=== PATIENT | female | born 1995 | race Caucasian/White ===

== ENCOUNTER 2025-05-27 05:59 | Emergency (ER) | payer OTHER, SELFPAY ==
--- OUTSIDE RECORDS SUMMARY | 2025-04-17 04:45 | XMS_ITS ---
Author Organization [facility] Serv[facility] Address [address] [place] [address] Care Team Providers Care Child Support Officer Name Role Phone Columba Snatacruz Primary Care Provider [phone] Rossana Hayes [phone] REASON FOR VISIT Abilify injection Social History Sex Assigned At : Social History Observation Description Sex Assigned At Female Encounters Encounter Location Date Provider Diagnosis [address] [place] [address] 2024 Rossana Hayes Plan Of Treatment No Information Progress Notes * MANUEL TINOCODOB: 5 (30 yo F)Acc No.[id number]:04/17/2025 BH INJECTION Patient: Leonela WILNERSHANNA MANUEL Provider:?Rossana HayesDOB:1995???Age:30 Y ???Sex:FemaleDate:04/17/2025Phone:[phone]:[facility] [place], [place]-[id number]:Columba Santacruz Subjective: * Chief Complaints: * A bilify injection Billing Information: * Procedure Codes: * Electronic signature of WHITLEY Izaguirre FNP on 05/27/2025 at 07:11 AM EST Sign off status: Pending * Appointment Provider: Phyllis Hayes Date: 06/17/2024 Generated for Printing/Faxing/eTransmitting on:?05/27/2025 07:11 AM EST
--- OUTSIDE RECORDS SUMMARY | 2025-04-21 03:30 | XMS_ITS ---
Author Organization [facility] Address [address] [place] [address] Care Team Providers Care Application Support Consultant Name Role Phone Columba Santacruz Primary Care Provider Diana Lujan [phone] REASON FOR VISIT 3 month f/u bh Social History Sex Assigned At : Social History Observation Description Sex Assigned At Female Encounters Encounter Location Date Provider Diagnosis [address] [address] 04/21/2025 Diana Lujan Plan Of Treatment No Information Progress Notes * MANUEL TINOCODOB: 5 (30 yo F)Acc No.[id number]:04/21/2025 Behavioral Health Patient: MANUEL BRYANT :?Diana uLjanDOB:1995???Age:30 Y???Sex: FemaleDate:04/21/2025Phone:[phone]:[address] [facility] [place], [id number]:Columba Santacruz Subjective: * Chief Complaints: * 3 month f/u Billing Information: * Procedure Codes: * Electronic signature of SANTO Dumont on 05/27/2025 at 07:11 AM EST Sign off status: Pending * Provider: Keyana Lujan Date: 06/21/2024 Generated for Printing/Faxing/eTransmitting on:?05/27/2025 07:11 AM EST
--- OUTSIDE RECORDS SUMMARY | 2025-05-15 09:45 | XMS_ITS ---
Author Organization [facility] Address [address] [place] [address] Care Team Providers Care Stagecraft Teacher Name Role Phone Columba Santacruz Primary Care Provider Diana Lujan [phone] REASON FOR VISIT Pt is a 30 year old female here today for a 4 month f/u Social History Sex Assigned At : Social History Observation Description Sex Assigned At Female Encounters Encounter Location Date Provider Diagnosis [place] [address] [facility] [place] [address] 05/15/2025 Diana Lujan Plan Of Treatment No Information Progress Notes * MANUEL TINOCODOB: 5 (30 yo F)Acc No.[id number]:05/15/2025 Behavioral Health Patient: MANUEL BRYANT :?Diana LujanDOB:1995???Age:30 Y???Sex: FemaleDate:05/15/2025Phone:[phone]:[address] [facility] [place], [place]-[id number]:Columba Santacruz Subjective: * Chief Complaints: * P t is a 30 year old female here today for a 4 month f/u Billing Information: * Procedure Codes: * Electronic signature of SANTO Dumont on 05/27/2025 at 07:11 AM EST Sign off status: Pending * Provider: Keyana Lujan Date: 1 07/16/2024 Generated for Printing/Faxing/eTransmitting on:?05/27/2025 07:11 AM EST
--- OUTSIDE RECORDS SUMMARY | 2025-05-22 04:00 | XMS_ITS ---
Author Organization [facility] Serv[facility] es Address [address] [place] [address] Care Team Providers Care Insulation Cutter Name Role Phone Columba Santacruz Primary Care Provider Diana Lujan [phone] REASON FOR VISIT Pt is a 30 year old female here today for a 4 month f/u Social History Sex Assigned At : Social History Observation Description Sex Assigned At Female Encounters Encounter Location Date Provider Diagnosis [place] [address] [facility] [place] [address] 05/22/2025 Diana Lujan Plan Of Treatment No Information Progress Notes * MANUEL TINOCODOB: 5 (30 yo F)Acc No.[id number]:05/22/2025 Behavioral Health Patient: MANUEL BRYANT :?Diana LujanDOB:1995???Age:30 Y???Sex: FemaleDate:05/22/2025Phone:[phone]:[address] [facility] [place], [place]-[id number]:Columba Santacruz Subjective: * Chief Complaints: * P t is a 30 year old female here today for a 4 month f/u Billing Information: * Procedure Codes: * Electronic signature of SANTO Dumont on 05/27/2025 at 07:11 AM EST Sign off status: Pending * Provider: Keyana Lujan Date: 1 07/23/2024 Generated for Printing/Faxing/eTransmitting on:?05/27/2025 07:11 AM EST
[2025-05-27] VITALS (9 sets, daily range): BP systolic 106–117; BP diastolic 77–79; PULSE 103; TEMP 37.1; O2SAT 97–100; BMI 26.5
--- NOTE | 2025-05-27 06:18 | PC.NURSE ---
Patient to ED by EMS with c/o fever, n/v/d, muscle aches and headache. She reports having done home Covid test last night and this morning and both were negative. She states she was just diagnosed with cyclic vomiting syndrome, and that she has a medical marijuana card. She has both Reglan and Zofran at home that she uses routinely. She reports having diarrhea, and also a dx of Crohn's. She took Tylenol last at 5am- EMS reported temp of 101, temp on arrival was 98. She reports that her temp was up to 105 yesterday and Tylenol was not working. She is very chatty and joking during the entire triage. Patient is swabbed for Flu and Covid.
[2025-05-27 06:29] LABS: SARS-CoV-2 Ag POSITIVE (NEGATIVE)
[2025-05-27 06:43] LABS: Hematocrit 39.2 % (36.0-48.0); Hemoglobin 13.0 g/dL (12.0-16.0); Mean Corpuscular HGB Conc 33.2 g/dL (29.9-35.2); Mean Corpuscular Hemoglobin 29.4 pg (26.7-34.0); Mean Corpuscular Volume 88.7 fL (81.0-99.0); Platelet Count 153 10^3/uL (150-450); Red Blood Count 4.42 10^6/uL (4.20-5.40); White Blood Count 3.8 10^3/uL (4.0-11.0)
[2025-05-27 06:44] LABS: Glucose Urine UA NEGATIVE (NEGATIVE)
--- NOTE | 2025-05-27 06:52 | ED_ITS ---
Documented by User: Alan Marin MD 05/28/25 06:34 HPI - Nausea/Vomiting/Diarrhea General Chief complaint: Nausea/Vomiting/Diarrhea Stated complaint: FEVER Time Seen by Provider: 05/27/25 06:22 Source: patient Mode of arrival: ambulance History of Present Illness HPI Narrative: past history of cyclical vomiting syndrome, gastroparesis, Diarrhea, body aches and headaches . Recurrent vomiting for past 2-3 days. States she passed out at home. Also complaining of flank pain and fever. Has been taking Tylenol at home Related Data Home Medications ?Medication ?Instructions ?Recorded ?Confirmed gabapentin 400 mg tablet 400 mg PO BID 05/27/2505/27 metoclopramide HCl 10 mg tablet 10 mg PO BID 05/27/25 05/27/25 (Reglan) ondansetron HCl 4 mg tablet 4 mg PO Q8H 05/27/2505/27 tizanidine 4 mg capsule (Zanaflex) 4 mg PO BID PRN mus alexandre spasticity 05/27/25 05/27/25 Previous Rx's ?Medication ?Instructions ?Recorded promethazine 25 mg rectal 25 mg NM BID PRN nausea and 05/27/25 suppository vomiting #12 ea promethazine 25 mg tablet 25 mg PO TID PRN nausea and 05/27/25 vomiting #20 tabs Allergies Allergy/AdvReac Type Severity Reaction Status Date / Time latex Allergy Severe Hives Verified 05/27/25 13:55 aspirin Allergy Intermediate Vomiting Verified 05/27/25 13:55 lamotrigine (From Lamictal) AdvReac Intermediate Rash Verified 05/27/25 13:55 Review of Systems ROS Status of ROS 10 or more systems reviewed and unremark able except as noted in history and below [facility] Medical History (Updated 05/27/25 @ 14:01 by Catrina Wang MD) Pain management ?R52 - Pain, unspecified (ICD-10) delivery delivered ?O82 - Encounter for delivery without indication (ICD-10) Nonrheumatic aortic (valve) stenosis ?I35.0 - Nonrheumatic aortic (valve) stenosis (ICD-10) Cyclic vomiting syndrome ?R11.15 - Cyclical vomiting syndrome unrelated to migraine (ICD-10) Pulmonary embolism ?I26.99 - Other pulmonary embolism without acute cor pulmonale (ICD-10) Acute Crohn's disease ?K50.90 - Crohn's disease, unspecified, without complications (ICD-10) TIA (transient ischemic attack) ?G45.9 - Transient cerebral ischemic attack, unspecified (ICD-10) Social History Little interest or pleasure in doing things: not at all Feeling down, depressed, or hopeless: not at all Exam Constitutional Vital Signs, click to edit/add: Last Vital Signs Temp 98.8 F 05/27/25 06:02 Pulse 103 H 05/27/25 06:02 Resp 20 05/27/25 06:02 BP 117/77 05/27/25 08:00 Pulse Ox 100 05/27/25 08:30 O2 Del Method Room Air 05/27/25 06:02 Common normals: no apparent distress, average body habitus, oriented x3, no limitations, healthy appearing, alert and well nourished HENMT Common normals: normocephalic and head/scalp atraumatic Eye Common normals: EOMs intact bilaterally and conjunctivae normal Respiratory Common normals: normal respiratory effort, no retractions, no use of accessory muscles and clear to auscultation bilaterally Cardio Rate: tachycardic GI Common normals: Normal to inspection, nondistended, normoactive bowel sounds present and soft to palpation Other: gen nonspecific tenderness Extremity Common normals: normal to inspection and full ROM Neuro Common normals: oriented x3, CN's II-XII intact bilaterally and moves all extremities Psych Appearance: grossly normal Course Vital Signs Vital signs: Vital Signs Blood Pressure 106/79 05/27/25 05:59 Temperature 98.8 F 05/27/25 06:02 Pulse Rate 103 H 05/27/25 06:02 Respiratory Rate 20 05/27/25 06:02 Blood Pressure 117/77 05/27/25 08:00 Pulse Oximetry 100 05/27/25 08:30 Oxygen Delivery Method Room Air 05/27/25 06:02 MDM - Nausea/Vomiting/Diarrhea MDM Narrative Medical decision making narrative: presents with vomiting diarrhea and body aches. COVID 19+. labs and IV hydration ordered. Care transferred to Dr Wang at change of shift Lab Data Labs: Lab Results 05/27/25 05/27/25 Range/Units 06:10 06:30 WBC 3.8 L (4.0-11.0) 10^3/uL RBC 4.42 (4.20-5.40) 10^6/uL Hgb 13.0 (12.0-16.0) g/dL Hct 39.2 (36.0-48.0) % MCV 88.7 (81.0-99.0) fL MCH 29.4 (26.7-34.0) pg MCHC 33.2 (29.9-35.2) g/dL RDW 14.6 (11.0-15.0) % Plt Count 153 (150-450) 10^3/uL MPV 11.5 (9.5-13.5) fL Seg Neuts % (Manual) 76.0 H (43.0-75.0) Lymphocytes % (Manual) 16.0 L (20.5-60.0) % Monocytes % (Manual) 7.0 (1.7-12.0) % Eosinophils % (Manual) 1.0 (0.9-7.0) % Basophils % (Manual) 0.0 L (0.2-2.0) % Neutrophils # (Manual) 2.88 (1.4-6.5) 10^3/uL Lymphocytes # (Manual) 0.60 L (1.20-3.80) 10^3/uL Monocytes # (Manual) 0.26 L (0.30-0.80) 10^3/uL Eosinophils # (Manual) 0.03 (0.00-0.70) 10^3/uL Basophils # (Manual) 0.00 (0.00-0.10) 10^3/uL Sodium 140 (136-145) mmol/L Potassium 3.5 (3.5-5.1) mmol/L Chloride 106 (98-107) mmol/L Carbon Dioxide 20.7 L (21.0-32.0) mmol/L Anion Gap 16.8 BUN 14.0 (7.0-18.0) mg/dL Creatinine 1.78 H (0.55-1.02) mg/dL Est GFR ( Amer) 41 L (>=60 mL/min/1.73m^2) Est GFR (Non-Af Amer) 33 L (>=60 mL/min/1.73m^2) BUN/Creatinine Ratio 7.9 Glucose 83 (74-106) mg/dL Lactate 2.6 H* (0.4-2.0) mmol/L Calcium 7.5 L (8.5-10.1) mg/dL Total Bilirubin 0.2 (0.2-1.0) mg/dL AST 13 L (15-37) U/L ALT 9 L (14-59) U/L Alkaline Phosphatase 65 (46-116) U/L Total Protein 6.4 (6.4-8.2) g/dL Albumin 3.1 L (3.4-5.0) g/dL Globulin 3.3 g/dL Albumin/Globulin Ratio 0.9 Serum HCG, Qual Negative (NEGATIVE) Urine Color Yellow (YELLOW) Urine Clarity Clear (CLEAR) Urine pH 6.0 (5.0-9.0) Ur Specific [place] >=1.030 A (1.005-1.025) Urine Protein 100 A (NEG/TRACE) mg/dL Urine Glucose (UA) Negative (NEGATIVE) mg/dL Urine Ketones Negative (NEGATIVE) mg/dL Urine Occult Blood Large A (NEGATIVE) Urine Nitrite Positive A (NEGATIVE) Urine Bilirubin Negative (NEGATIVE) Urine Urobilinogen 0.2 (0.2-1.0) EU/dL Ur Leukocyte Esterase Negative (NEGATIVE) Urine RBC 2-5 A (0-2) #/HPF Urine WBC 2-5 A (NONE SEEN) #/HPF Ur Squamous Epith Cells Moderate A (NONE/RARE) #/LPF Urine Crystals None seen (None Seen) #/HPF Urine Bacteria Large A (NONE SEEN) #/HPF Urine Casts None seen (NONE SEEN) #/LPF Urine Mucus None seen (NONE SEEN) Urine Yeast Seen A (NONE SEEN) Ur Culture Indicated? Yes-[facility] Influenza Type A Ag Negative Influenza Type B Ag Negative SARS-CoV-2 Ag (CV2AG) Positive A (NEGATIVE) Discharge Plan Discharge Chief Complaint: Nausea/Vomiting/Diarrhea Clinical Impression: Gastroenteritis, COVID-19, RAGHAVENDRA (acute kidney injury) Patient Disposition: Home, Self-Care Time of Disposition Decision: 08:29 Condition: Good Prescriptions / Home Meds: New promethazine 25 mg tablet 25 mg PO TID PRN (Reason: nausea and vomiting) Qty: 20 0RF promethazine 25 mg suppository 25 mg NM BID PRN (Reason: nausea and vomiting) Qty: 12 0RF Rx Instructions: please use if not tolerating PO No Action gabapentin 400 mg tablet 400 mg PO BID tizanidine [Zanaflex] 4 mg capsule 4 mg PO BID PRN (Reason: muscle spasticity) ondansetron HCl 4 mg tablet 4 mg PO Q8H metoclopramide HCl [Reglan] 10 mg tablet 10 mg PO BID Print Language: Marshallese Instructions: Acute Kidney Injury (DC), Acute Nausea and Vomiting (DC), COVID- 19 (Coronavirus Disease 2019) (ED) Discharge Date/Time: 05/27/25 08:47 Documented by User: Catrina Wang MD 05/27/25 14:26 HPI - Nausea/Vomiting/Diarrhea General Chief complaint: Nausea/Vomiting/Diarrhea Stated complaint: FEVER Time Seen by Provider: 05/27/25 06:22 Related Data Home Medications ?Medication ?Instructions ?Recorded ?Confirmed gabapentin 400 mg tablet 400 mg PO BID 05/27/2505/27 metoclopramide HCl 10 mg tablet 10 mg PO BID 05/27/25 05/27/25 (Reglan) ondansetron HCl 4 mg tablet 4 mg PO Q8H 05/27/2505/27 tizanidine 4 mg capsule (Zanaflex) 4 mg PO BID PRN mus alexandre spasticity 05/27/25 05/27/25 Previous Rx's ?Medication ?Instructions ?Recorded promethazine 25 mg rectal 25 mg NM BID PRN nausea and 05/27/25 suppository vomiting #12 ea promethazine 25 mg tablet 25 mg PO TID PRN nausea and 05/27/25 vomiting #20 tabs Allergies Allergy/AdvReac Type Severity Reaction Status Date / Time latex Allergy Severe Hives Verified 05/27/25 13:55 aspirin Allergy Intermediate Vomiting Verified 05/27/25 13:55 lamotrigine (From Lamictal) AdvReac Intermediate Rash Verified 05/27/25 13:55 [facility] Medical History (Updated 05/27/25 @ 14:01 by Catrina Wang MD) Pain management ?R52 - Pain, unspecified (ICD-10) delivery delivered ?O82 - Encounter for delivery without indication (ICD-10) Nonrheumatic aortic (valve) stenosis ?I35.0 - Nonrheumatic aortic (valve) stenosis (ICD-10) Cyclic vomiting syndrome ?R11.15 - Cyclical vomiting syndrome unrelated to migraine (ICD-10) Pulmonary embolism ?I26.99 - Other pulmonary embolism without acute cor pulmonale (ICD-10) Acute Crohn's disease ?K50.90 - Crohn's disease, unspecified, without complications (ICD-10) TIA (transient ischemic attack) ?G45.9 - Transient cerebral ischemic attack, unspecified (ICD-10) Social History Little interest or pleasure in doing things: not at all Feeling down, depressed, or hopeless: not at all Exam Constitutional Vital Signs, click to edit/add: Last Vital Signs Temp 98.8 F 05/27/25 06:02 Pulse 103 H 05/27/25 06:02 Resp 20 05/27/25 06:02 BP 117/77 05/27/25 08:00 Pulse Ox 100 05/27/25 08:30 O2 Del Method Room Air 05/27/25 06:02 Course Vital Signs Vital signs: Vital Signs Blood Pressure 106/79 05/27/25 05:59 Temperature 98.8 F 05/27/25 06:02 Pulse Rate 103 H 05/27/25 06:02 Respiratory Rate 20 05/27/25 06:02 Blood Pressure 117/77 05/27/25 08:00 Pulse Oximetry 100 05/27/25 08:30 Oxygen Delivery Method Room Air 05/27/25 06:02 MDM - Nausea/Vomiting/Diarrhea MDM Narrative Medical decision making narrative: presents with vomiting diarrhea and body aches. COVID 19+. labs and IV hydration ordered. Care transferred to Dr Wang at change of shift Dr. Wang The patient care transferred to pa at the end of the shift CBC and chemistry showed that the patient have some acute kidney injury although she did mention that she have a baseline chronic kidney disease with her history of cyclic vomiting Patient was found to be COVID-positive she was provided with 2 L of IV fluid after the first liter the patient had her medication changed to Compazine IV a fter which she was feeling much better and she ended up ordering food from outside the hospital through [employer] and it was heavy food including gravy , once the food arrived and pt ate she and that she is feeling better ,the patient was eating with no difficulty and she requested to leave although the plan was to repeat the lactic acid and the blood workup but with the patient feeling much better and continued hydration right now there is no source of infection except for the COVID-19 the patient is to continue hydration she was discharged home with Phenergan as well as Phenergan suppository because of her history of cyclic vomiting The patient also referred to the primary care as outpatient for further evaluation of her kidney function Does have a urinalysis but there is some nitrite but there are no white blood cells or any significant RBCs--- with the patient history of diarrhea no need for any treatment for any UTI as the patient does not have any symptoms of any frequency or urinary symptoms at the moment and any antibiotic will exacerbate her diarrhea if not needed with her history of COVID-19 supportive care with the main plan The patient to follow-up with the primary care within 2 to 3 days and to come back to the ER in case of any worsening of the current symptoms or any new symptoms or concerns Clinical impression: COVID-19 Gastroenteritis Cyclic vomiting Acute kidney injury Lab Data Labs: Lab Results 05/27/25 05/27/25 Range/Units 06:10 06:30 WBC 3.8 L (4.0-11.0) 10^3/uL RBC 4.42 (4.20-5.40) 10^6/uL Hgb 13.0 (12.0-16.0) g/dL Hct 39.2 (36.0-48.0) % MCV 88.7 (81.0-99.0) fL MCH 29.4 (26.7-34.0) pg MCHC 33.2 (29.9-35.2) g/dL RDW 14.6 (11.0-15.0) % Plt Count 153 (150-450) 10^3/uL MPV 11.5 (9.5-13.5) fL Seg Neuts % (Manual) 76.0 H (43.0-75.0) Lymphocytes % (Manual) 16.0 L (20.5-60.0) % Monocytes % (Manual) 7.0 (1.7-12.0) % Eosinophils % (Manual) 1.0 (0.9-7.0) % Basophils % (Manual) 0.0 L (0.2-2.0) % Neutrophils # (Manual) 2.88 (1.4-6.5) 10^3/uL Lymphocytes # (Manual) 0.60 L (1.20-3.80) 10^3/uL Monocytes # (Manual) 0.26 L (0.30-0.80) 10^3/uL Eosinophils # (Manual) 0.03 (0.00-0.70) 10^3/uL Basophils # (Manual) 0.00 (0.00-0.10) 10^3/uL Sodium 140 (136-145) mmol/L Potassium 3.5 (3.5-5.1) mmol/L Chloride 106 (98-107) mmol/L Carbon Dioxide 20.7 L (21.0-32.0) mmol/L Anion Gap 16.8 BUN 14.0 (7.0-18.0) mg/dL Creatinine 1.78 H (0.55-1.02) mg/dL Est GFR ( Amer) 41 L (>=60 mL/min/1.73m^2) Est GFR (Non-Af Amer) 33 L (>=60 mL/min/1.73m^2) BUN/Creatinine Ratio 7.9 Glucose 83 (74-106) mg/dL Lactate 2.6 H* (0.4-2.0) mmol/L Calcium 7.5 L (8.5-10.1) mg/dL Total Bilirubin 0.2 (0.2-1.0) mg/dL AST 13 L (15-37) U/L ALT 9 L (14-59) U/L Alkaline Phosphatase 65 (46-116) U/L Total Protein 6.4 (6.4-8.2) g/dL Albumin 3.1 L (3.4-5.0) g/dL Globulin 3.3 g/dL Albumin/Globulin Ratio 0.9 Serum HCG, Qual Negative (NEGATIVE) Urine Color Yellow (YELLOW) Urine Clarity Clear (CLEAR) Urine pH 6.0 (5.0-9.0) Ur Specific [place] >=1.030 A (1.005-1.025) Urine Protein 100 A (NEG/TRACE) mg/dL Urine Glucose (UA) Negative (NEGATIVE) mg/dL Urine Ketones Negative (NEGATIVE) mg/dL Urine Occult Blood Large A (NEGATIVE) Urine Nitrite Positive A (NEGATIVE) Urine Bilirubin Negative (NEGATIVE) Urine Urobilinogen 0.2 (0.2-1.0) EU/dL Ur Leukocyte Esterase Negative (NEGATIVE) Urine RBC 2-5 A (0-2) #/HPF Urine WBC 2-5 A (NONE SEEN) #/HPF Ur Squamous Epith Cells Moderate A (NONE/RARE) #/LPF Urine Crystals None seen (None Seen) #/HPF Urine Bacteria Large A (NONE SEEN) #/HPF Urine Casts None seen (NONE SEEN) #/LPF Urine Mucus None seen (NONE SEEN) Urine Yeast Seen A (NONE SEEN) Ur Culture Indicated? Yes-[facility] Influenza Type A Ag Negative Influenza Type B Ag Negative SARS-CoV-2 Ag (CV2AG) Positive A (NEGATIVE) Discharge Plan Discharge Chief Complaint: Nausea/Vomiting/Diarrhea Clinical Impression: Gastroenteritis, COVID-19, RAGHAVENDRA (acute kidney injury) Patient Disposition: Home, Self-Care Time of Disposition Decision: 08:29 Condition: Good Prescriptions / Home Meds: New promethazine 25 mg tablet 25 mg PO TID PRN (Reason: nausea and vomiting) Qty: 20 0RF promethazine 25 mg suppository 25 mg NM BID PRN (Reason: nausea and vomiting) Qty: 12 0RF Rx Instructions: please use if not tolerating PO No Action gabapentin 400 mg tablet 400 mg PO BID tizanidine [Zanaflex] 4 mg capsule 4 mg PO BID PRN (Reason: muscle spasticity) ondansetron HCl 4 mg tablet 4 mg PO Q8H metoclopramide HCl [Reglan] 10 mg tablet 10 mg PO BID Print Language: Marshallese Instructions: Acute Kidney Injury (DC), Acute Nausea and Vomiting (DC), COVID- 19 (Coronavirus Disease 2019) (ED) Discharge Date/Time: 05/27/25 08:47
[2025-05-27 06:56] LABS: Cast Seen? NONE SEEN #/LPF (NONE SEEN); Crystals Seen? None Seen #/HPF (None Seen); Urine Culture Indicated YES-FRMC
[2025-05-27 07:05] LABS: Alanine Aminotransferase 9 U/L (14-59); Albumin Globulin Ratio 0.9; Albumin Level 3.1 g/dL (3.4-5.0); Alkaline Phosphatase 65 U/L (46-116); Anion Gap 16.8; Aspartate Amino Transferase 13 U/L (15-37); Blood Urea Nitrogen 14.0 mg/dL (7.0-18.0); Calcium 7.5 mg/dL (8.5-10.1); Carbon Dioxide 20.7 mmol/L (21.0-32.0); Chloride 106 mmol/L (98-107); Estimated GFR (African America 41 (>=60 mL/min/1.73m^2); Estimated GFR (Non-African Ame 33 (>=60 mL/min/1.73m^2); Globulin 3.3 g/dL; Glucose 83 mg/dL (74-106); Potassium 3.5 mmol/L (3.5-5.1); Sodium 140 mmol/L (136-145); Total Protein 6.4 g/dL (6.4-8.2)
--- OUTSIDE RECORDS SUMMARY | 2025-05-27 07:12 | XMS_ITS | Patient Health Record ---
Author Organization [employer] es Address [address] [place] [address] Care Team Providers Care Applications Scientist Name Role Phone Noam Columba Primary Care Provider Maureen Preciado Unavailable Dr. Sigifredo Bautista Unavailable [phone] Rossana Hayes Unavailable [phone] Mary Anne Huber Unavailable [phone] Lizzette Woo Unavailable [phone] Emili Jain Karla Unavailable SoJorge pulido Unavailable [phone] Sierra Pelayo Unavailable Penny Willams Unavailable [phone] Loki Grimes Unavailable [phone] Diana Lujan Unavailable [phone] Maureen Vieira Unavailable [phone] Allergies Allergen (clinical drug ingredient) Drug/Non Drug Allergy documented on EMR Reaction Allergy Type Onset Date Status lamotrigine LaMICtal rash Drug Allergy ActivealprazolamXanaxUnknownDrug AllergyActiveaspirinAspirinvomiting bloodDrug AllergyActive Results Component Value Reference Range Flag Notes Urine Culture Reviewed date:07/18/2024 05:34:59 PM Interpretation: Performing Lab:, [facility], [place] Notes/Report: POTENTIALLY THEY MAY BECOME RESISTANT TO ALL B-LACTAM DRUGS. SPECIES KNOWN TO POSSESS INDUCIBLE BETA-LACTAMASES. IB = INDUCIBLE BETA-LACTAMASE. APPEARS IN PLACE OF 'S' WITH TRISH = BETA-LACTAMASE POSITIVE TFG = THYMIDINE-DEPENDENT STRAIN ESBL = EXTENDED SPECTRUM BETA-LACTAMASE R* = RESISTANCE DUE TO EXTENDED SPECTRUM BETA-LACTAMASES BLANK = DATA NOT AVAILABLE, OR DRUG NOT ADVISABLE OR TESTED S = SUSCEPTIBLE I = INTERMEDIATE R = RESISTANT [place] Count >100,000 Aerobic MICEscherichia coliAmikacin<16SAmoxacillin/K Clavulanate<8/4SAmpicillin >16RAmpicillin/Sulbactam=16/8IAztreonam<4SCefazolin<2SCefepime<2SCeftazidime<1S Ceftazidime/Avibactam<4SCeftolozane/Tazobactam<2SCeftriaxone<1SCefuroxime<4S Ciprofloxacin<0.25SErtapenem<0.5SGentamicin<2SLevofloxacin<0.5SMeropenem<1S Meropenem/Vaborbactam<2SNitrofurantoin<32SPiperacillin/Tazobactam<8STetracycline <4STigecycline<2STobramycin<2STrimethoprim/Sulfamethoxazole>2/38RCBC w/ Auto Diff Reviewed date:03/12/2025 11:23:32 AM Interpretation: Performing Lab: Notes/Report: Original Ordering Provider: [place] [address] [address] [facility] LaboratoryWBC9.44.0-11.0 E9/LNRBC5.24.3-5.9 E12/LN HGB14.912.0-16.0 gm/fHSJqo33.834.0-46.0 %NRDW15.310.9-14.2 %HMCH28.827.0-34.0 pg NMCHC33.331.4-36.0 gm/fQASWO52.580.0-100.0 fLNMPV9.86.4-10.8 tKVWltyarkt154.0 150.0-500.0 E9/LNNeutro Auto95.036.0-75.0 %HLymph Auto4.414.0-50.0 %LMono Auto 0.34.0-14.0 %Virgie Auto0.00.0-8.0 %NBasophil Auto0.30.0-2.0 %NNeutro Absolute8.9 2.0-7.5 E9/LHLymph Absolute0.41.0-4.0 E9/LLMono Absolute0.00.2-1.0 E9/LLEos Absolute0.00.0-0.5 E9/LNBasophil Absolute0.00.0-0.2 E9/LNPerforming Labsee note [facility] Laboratory unless otherwise specified [address], [place] [address] IEU Reviewed date:03/12/2025 08:08:56 AM Interpretation: Performing Lab: Notes/Report: [facility] [address] [place] [address] Original Ordering Provider: RAJANI SANTACRUZGlucose Eaf07572-432 mg/sDBGYT50 5-21 mg/dLNCreatinine1.30.5-1.3 mg/dLNCalcium Lvl9.58.9-11.1 mg/dLNSodium Wer955 135-145 mmol/LNPotassium Lvl3.83.5-5.3 mmol/ZVXgwwxobu208191-510 mmol/DFPX71823- 31 mmol/LNAlk Yncw3725-26 Int._Unit/LNBili Total0.40.0-1.1 mg/dLNAlbumin Lvl4.7 3.3-5.0 gm/dLNTotal Protein7.66.0-7.8 gm/vLHMEB40-92 Int._Unit/KDZHZ668-36 Int._Unit/LNBUN/Creat Nfrfj2370-14 No EqgohGIOWD911-59 mEq/LNGlobulin2.91.4-4.0 gm/dLNA/G Ratio1.61.1-2.2NPerforming Labsee noteWestern Reserve Hospital Laboratory unless otherwise specified [address], [place] [address] AOA Screen 4th Generation wRfx Reviewed date:03/12/2025 11:23:36 AM Interpretation: Performing Lab: Notes/Report: Original Ordering Provider: [place] [address] [address] [facility] LaboratoryHIV Screen 4th Generation w/RfxNon ReactiveNon Reactive HIV-1/HIV-2 antibodies and HIV-1 p24 antigen were NOT detected. There is no laboratory evidence of HIV infection. HIV Negative Performed at: [facility] [id number] PhD Norberto Martinez Performing Labsee [facility] Laboratory unless otherwise specified [address] [place] [address] Basic Metabolic Panel Reviewed date:07/17/2024 07:35:57 AM Interpretation: Performing Lab: Notes/Report:Rugktsx1801-340 mg/dLN Random Glucose Reference Range is dependent on time and content of last meal. Glucose of more than 200 mg/dL in a nonstressed, ambulatory subject supports the diagnosis of Diabetes Mellitus. ADA recommended reference range Blood Urea Zhidhiau634-19 mg/fCPIekywp434652-120 mmol/LNPotassium4.13.5-5.1 mmol/KVTmatslws79150-750 mmol/LHCarbon Mojqfxo92.921.0-31.0 mmol/LLCalcium8.3 8.6-10.3 mg/dLLCreatinine1.160.60-1.20 mg/dLNEstimated GFR>60.0Anion Gap10.26.0- 15.0 meq/LNCreatinine Clr Calc Shnqokyv76.33Hepatic Panel Reviewed date:07/17/2024 07:36:09 AM Interpretation: Performing Lab:, [facility], [address], [place] Notes/Report:Total Protein6.96.4-8.9 g/dLNAlbumin Level4.23.5-5.7 g/dLNGlobulin 2.7Albumin/Globulin Ratio1.6Bilirubin,Total0.20.3-1.0 mg/dLLBilirubin,Direct0.10 0.03-0.18 mg/dLNBilirubin,Indirect0.1Aspartate Amino Doeggozywuq0293-63 U/LN Alanine Ycslmjvvpmzeebuu21-19 U/LLAlkaline Wcfsacozwyu3421-837 U/LNLipase Reviewed date:07/17/2024 07:35:35 AM Interpretation: Performing Lab: Notes/Report:Yfaaur53.011.0-82.0 U/LNComplete Blood Count Auto Diff Reviewed date:07/17/2024 07:35:27 AM Interpretation: Performing Lab:, [facility], [address] [place] Notes/Report:White Blood Count12.73.8-11.6 10*3/uLHUncorrected WBC12.73.8-11.6 10*3/uLHRed Blood Count4.343.60-5.00 10*6/tIKGgjxjydpcj27.011.8-15.4 g/dLN Nzifxkpwis56.934.0-46.4 %NMean Corpuscular Tjvfpa79.380-100 fLNMean Corpuscular Aqnaiingyc27.924.7-34.3 pgNMean Corpuscular HGB Conc34.232.0-35.0 g/dLNRed Cell Distribution Width14.911.9-15.3 %NPlatelet Goxvj814639-442 10*3/uLNMean Platelet Volume9.16.3-10.7 fLNNeutrophils % (Auto)79.0. %Lymphocytes % (Auto)15.9. % Monocytes % (Auto)4.1. %Eosinophils % (Auto)0.6. %Basophils % (Auto)0.4. %NRBC% 0.10-0.5 /100{WBC}NNeutrophils # (Auto)10.01.8-7.7 10*3/uLHLymphocytes # (Auto) 2.01.00-4.8 10*3/uLNMonocytes # (Auto)0.50.0-0.8 10*3/uLNEosinophils # (Auto)0.1 0.0-0.45 10*3/uLNBasophils # (Auto)0.10.0-0.2 10*3/uLNMonocyte Distribution Width16.360.00-20.00 %NDipstick and Microscopic Reviewed date:07/17/2024 07:36:31 AM Interpretation: Performing Lab:, [facility], [address] [place] Notes/Report: Name Collection Type:: VoidedColor,UrineYellowYellowAppearance,UrineCloudyClear AASpecificy [place],Urine1.0181.001-1.030NpH,Urine6.05.0-9.0NLeukocyte Esterase,Urine3+NegativeHNitrite,UrinePositiveNegativeHProtein,UrineTrace NegativeHGlucose,Urine (UA)NormalNormalKetones,UrineNegativeNegative Urobilinogen,UrineNormalNormalBilirubin,UrineNegativeNegativeOccult Blood,Urine 2+NegativeHRBC,Urine3-40-4 [HPF]WBC,Rlnug23-626-8 [HPF]HSquamous Epithelial Cell,Pbrwx94-757-2 [HPF]HBacteria,Urine3+None SeenHHyaline Casts,Urine0-80-8 [LPF]Mucus,UrineRareHCG,Urine Reviewed date:07/17/2024 07:33:07 AM Interpretation: Performing Lab: Notes/Report: Name Collection Type:: VoidedHCG Qualitative,UrineNegativeCT angio chest PE protocol Reviewed date:07/10/2024 10:40:29 AM Interpretation: Performing Lab: Notes/Report: [facility] [place] [address] CT Scan Report Signed Patient: Kelly Tinoco MR#: [id number] : 1995 Acct:[id number] Age/Sex: 29 / F ADM Date: 07/10/24 Loc: CT Room: Type: [facility] Attending Dr: Maureen Preciado TITLE ASSISTANT-C Copies to: Maureen Preciado Ordering Provider: Maureen Preciado Date of Service: 07/10/24 CT/CT angio chest PE protocol: Nonrheumatic aortic valve insufficiency;Nicotine dependence, CT ANGIOGRAM OF THE CHEST, PULMONARY EMBOLISM PROTOCOL: CLINICAL INFORMATION: Aortic valve regurgitation, chest pain, nontraumatic aortic valve insufficiency, history of asthma/pulmonary embolism TECHNIQUE: Following intravenous injection of contrast CT scans of the chest were obtained using pulmonary embolism protocol. Coronal and sagittal reconstructed images, as well as volume rendered CT pulmonary angiographic images were also submitted.The CT exam was performed using one or more of the following dose reduction techniques: Automated exposure control, adjustment of the MA and/or Kv according to patient size, or use of the iterative reconstruction technique. FINDINGS: Pulmonary Vasculature: Contrast bolus is adequate for evaluation of pulmonary embolism. Pulmonary trunk appears nondilated. No filling defects are identified to suggest pulmonary embolism. Mediastinum : Motion through the aortic root and ascending aorta. Ascending aorta 2.9 x 3.0 cm.. No pericardial effusion. No lymphadenopathy. The esophagus is grossly unremarkable. Lungs: There are few Intrapulmonary lymph node minor fissure right middle lobe up to 3 mm in size. No focal consolidation, pneumothorax or pleural effusion. Upper abdomen: No acute findings Soft tissue/bones: Soft tissues surrounding the chest wall demonstrate no acute findings. Osseous structures demonstrate minimal scattered degenerative change. CT/CT angio chest PE protocol IMPRESSION: No CT evidence of pulmonary embolism or acute cardiopulmonary process. Impression dictated by: Nick Solis M.D.07/10/2024 8:48 AM Dictation Location: [place] [address] Transcribed By: [facility] 07/10/24 0848 Dictated By: Nick Solis MD 07/10/24 0844 Signed By: <Electronically signed by Nick Solis MD in [place]> 07/10/24 0848Urine Drug Screen Reviewed date:06/13/2024 11:32:41 AM Interpretation: Performing Lab: Notes/Report: THCPosCOCnegAMPnegOPInegMAMPnegPCPnegBARnegBZOposMTOnegMDMAnegOXYnegBUPnegUrine Culture Reviewed date:06/16/2024 06:36:45 AM Interpretation: Performing Lab:, [facility], [address], [place] Notes/Report: POTENTIALLY THEY MAY BECOME RESISTANT TO ALL B-LACTAM DRUGS. SPECIES KNOWN TO POSSESS INDUCIBLE BETA-LACTAMASES. IB = INDUCIBLE BETA-LACTAMASE. APPEARS IN PLACE OF 'S' WITH TRISH = BETA-LACTAMASE POSITIVE TFG = THYMIDINE-DEPENDENT STRAIN ESBL = EXTENDED SPECTRUM BETA-LACTAMASE R* = RESISTANCE DUE TO EXTENDED SPECTRUM BETA-LACTAMASES BLANK = DATA NOT AVAILABLE, OR DRUG NOT ADVISABLE OR TESTED Urine S = SUSCEPTIBLE I = INTERMEDIATE R = RESISTANT Reason for Exam Abdominal cramping;Lower abdominal painColony Count>100,000 Aerobic MICEscherichia coliAmikacin<16SAmoxacillin/K Clavulanate<8/4SAmpicillin >16RAmpicillin/Sulbactam=16/8IAztreonam<7GWequptciy2WLrwjixse<2SCeftazidime<1S Ceftazidime/Avibactam<4SCeftolozane/Tazobactam<2SCeftriaxone<1SCefuroxime<4S Ciprofloxacin<0.25SErtapenem<0.5SGentamicin<2SLevofloxacin<0.5SMeropenem<1S Meropenem/Vaborbactam<2SNitrofurantoin<32SPiperacillin/Tazobactam<8STetracycline <4STigecycline<2STobramycin<2STrimethoprim/Sulfamethoxazole<0.5/9.5SUrinalysis automated Reviewed date:06/13/2024 11:34:31 AM Interpretation: Performing Lab: Notes/Report: Urine-ColoryellowAppearancecloudySpecific Gravity1.010pH6.0GlucosenegProteinneg Occult Ymmfs028IuysssuotnpkYbpxbgljdpgl,Semi-Qn0.2Nitrite, UrineposKetonesnegWBC Hvuknsko22Eunt Screen,Urine Reviewed date:07/16/2024 08:43:59 AM Interpretation: Performing Lab:, [facility], [place] Notes/Report:Amphetamine Screen,UrineNegativeNegativeBarbiturate Screen,Urine NegativeNegativeBenzodiazepines Screen,UrineNegativeNegativeCocaine Screen,Urine NegativeNegativeOpiate Screen,UrineNegativeNegativePhencyclidine Screen,Urine NegativeNegativeCannabinoid Screen,UrinePositiveNegativeH These are unconfirmed results and should not be used for legal purposes. Drug Cut-Off Concentration: AMPH 1000 ng/mL ISMAEL 200 ng/mL SYLVIE 200 ng/mL COCM 300 ng/mL OP 300 ng/mL PCP 25 ng/mL THC 20 ng/mL HCG,Urine Reviewed date:07/16/2024 07:29:13 AM Interpretation: Performing Lab:, [facility], [place] Notes/Report:HCG Qualitative,UrineNegativeHCG,Urine Reviewed date:07/09/2024 09:00:26 AM Interpretation: Performing Lab:, [facility], [address] [place] Notes/Report:HCG Qualitative,UrineNegativeeGFR Reviewed date:03/12/2025 08:08:49 AM Interpretation: Performing Lab: Notes/Report: [facility] [address] [place] [address] Original Ordering Provider: RAJANI Kennedy57>=59 mL/min/1.73 m2L Performing Labsee noteUNK - [facility] unless otherwise specified [address] [place] [address] Reason For Referral Reason SCHEDULED 07/09 Hx of Crohns untreated pt needs colonoscopy. Currently symptomatic. Diagnosis 1 Nonrheumatic aortic valve insufficiency (I35.1) Diagnosis 2 Nicotine dependence, unspecified, uncomplicated (F17.200) Diagnosis 3 History of pulmonary embolus (PE) (Z86.711) Diagnosis 4 History of Crohn's d isease (Z87.19) Diagnosis 5 Nausea (R11.0) Diagnosis 6 Abdominal cramping ( R10.9) Diagnosis 7 Blood in stool (K92. 1) Diagnosis 8 Lower abdominal pain (R10.30) Referral Organization [facility] Referring Provider First Name Maureen Referring Provider Last Name Ozzy Referring Provider Speciality Nurse Eli bates Referred Provider [facility] , . Referred Provider Specialty Gastroentero logy Referral Priority Routine Reason SCHEDULED 09/10/24 M id chest pain. 20 Pack year hx tobacco use. Per cardiology notes was supposed to have MARCELA 3 months after initial PE in mid jan. Aortic Valve disease, hx of PE 2023. Echo done 01/02 showed mod severe aortic valve regurg undetermined cause. Diagnosis 1 Nonrheumatic aortic valve insufficiency (I35.1) Diagnosis 2 Nicotine dependence, unspecified, uncomplicated (F17.200) Diagnosis 3 History of pulmonary embolus (PE) (Z86.711) Diagnosis 4 Midsternal chest rohit n (R07.89) Diagnosis 5 Moderate persistent asthma without complication (J45.40) Referral Organization [facility] Referring Provider First Name Maureen Referring Provider Last Name Ozzy Referring Provider Speciality Nurse Eli bates Referred Provider [facility] Referred Provider Specialty Cardiology Referral Priority Routine Reason PT DECLINED TO SCHED ULE History of Crohns and cyclic vomiting Diagnosis 1 Crohn's disease with complication, unspecified gastrointestinal tract location (K50.919) Diagnosis 2 Cyclic vomiting synd courtney (R11.15) Referral Organization [facility] Referring Provider First Name Columba Referring Provider Last Name [place] Referring Provider [facility] ctice Referred Provider Ervin Goodwin [facility], . Referred Provider Specialty Gastroentero logy Referral Priority Routine Reason PT DECLINED TO SCHED ULE WITH TIMMIS THEY SCHEDULED WITH INSTEAD Multiple swollen right cervical lymph nodes/difficulty swallowing Diagnosis 1 Generalized lymphade nopathy (R59.1) Referral Organization [facility] Referring Provider First Name Columba Referring Provider Last Name Santacruz Referring Provider [facility] ctice Referred Provider [facility]), . Referred Provider Specialty Otolaryngolo gy Referral Priority Routine Reason PT DECLINED TO SCHED ULE requesting a GI doctor not at [facility] Diagnosis 1 Crohn's disease with complication, unspecified gastrointestinal tract location (K50.919) Referral Organization [facility] Referring Provider First Name Columba Referring Provider Last Name [place] Referring Provider [facility] Referred Provider [facility] , . Referred Provider Specialty Gastroentero logy Referral Priority Routine Reason SCHEDULED 04/10 Ge neralized pain Diagnosis 1 Generalized pain (R5 2) Referral Organization [facility] Referring Provider First Name Columba Referring Provider Last Name [place] Referring Provider [facility] ctice Referred Provider ERVIN GOODWIN [facility] Referred Provider Specialty Pain Medicin e Referral Priority Routine Medications Medication SIG (Take, Route, Frequency, Duration) Notes Start Date End Date Status Abilify Maintena 400 MG Pref illed Syringe as directed Intramuscular once a month; Duration: 30 days PSYCH ActiveOndansetron HCl 4 MG Tablet1 tablet Orally twice dailyNot-Taking/PRN Ondansetron HCl 4 MG Tablet 1 tablet Orally Twice per day; Duration: 30 days As needed 5ActiveAlbuterol Sulfate HFA 108 (90 Base) MCG/ACT Aerosol Solution2 puff as needed Inhalation every 4-6 hrs; Duration: 30 whmcEHR9606/13/2024 Not-Taking/PRNPromethazine HCl 25 MG Tablet1 tablet as needed Orally every 12 hrs; Duration: 30 daysActiveFlonase Allergy Relief 50 MCG/ACT Suspension1 spray in each nostril Nasally Twice a dayActivetraMADol HCl 50 MG Tablet1 tablet as needed Orally twice a day; Duration: 5 days5ActiveZyrTEC 10 MG Tablet Chewable1 tablet Orally Once a dayActiveLidocaine 5 % Patch1 patch remove after 12 hours External Once a day; Duration: 30 daysActiveClopidogrel Bisulfate 75 MG TabletTAKE 1 TABLET BY MOUTH EVERY DAY for 15 days Oral; Duration: 15 Days Not-Taking/PRNMetaxalone 800 MG TabletTAKE 1/2 (ONE-HALF) TO 1 (ONE) TABLET THREE TIMES DAILY NEEDED for pain/spasms (do not take withother muscle relaxants) Oral; Duration: 14 DaysActivepredniSONE 50 MG Tablet1 tablet with food or milk Orally Once a dayNot-Taking/PRNtraZODone HCl 150 MG Tablet2 tablets at bedtime Oral daily; Duration: 30 daysPt called and has been taking two tablets. dosage increasedActiveAlbuterol Sulfate HFA 108 (90 Base) MCG/ACT Aerosol Solution1 puff as needed Inhalation every 4 hrs; Duration: 30 days 5ActiveMetoclopramide HCl 10 MG Tablet1 tablet before meals Orally Twice a day; Duration: 30 days5ActiveDicyclomine HCl 20 MG Tablet1 tablet Orally Three times a day; Duration: 30 days501/6Active Gabapentin 400 MG Capsule1 capsule Orally twice a day; Duration: 30 daysPSYCH Active Social History Tobacco Use: Social History Observation Description Date Details (start date - stop date) Current Smoker NA - NA Sex Assigned At : Social History Observation Description Sex Assigned At Female Social History GeneralSocial InfoQuestionAnswerNotesTransition of Care:ER/UC/hospital since last office visit?NoSpecialist seen since last office visit?NoSubstance abuse/mental health issues of patient/familyPatient -DeniesAbility to understand healthcare/treatmentPatient:FairSexual Hx:Had sex in the last 12 months (vaginal, oral, or anal)?Yes? withMen only? Use protection?No? Prevention Strategies discussed:CondomsHave you ever had an STD?NoSocial/Support Concerns: Patient:NoBehaviors affecting healthPoor/Risky Behaviors:Nutrition-, Oral Health-Communication Barrier:Language Barrier?:NoFood Insecurity ScreeningSocial InfoQuestionAnswerNotesFood Insecurity ScreeningWithin the last 12 months, have you been worried about your food running out before you received money to buy more?NoWithin the last 12 months, did the food you buy not last, and you didn't have money to buy more?NoWithin the last 12 months, have you had any difficulty affording to eat balanced meals including all food groups (fruits, vegetables, protein, and whole grains)?NoDrug/Alcohol:Social InfoQuestionAnswerNotesAUDIT-C (Standard)Did you have a drink containing alcohol in the past year?NoPoints0 InterpretationNegativeOPIOID Risk Tool (2018 Edition)Family Hx Alcohol?YesFamily Hx Illegal Drugs?NoFamily Hx Rx Drugs?YesPersonal Hx Alcohol?NoPersonal Hx Illegal Drugs?YesPersonal Hx Rx Drugs?NoAge between 16-45 years?YesHistory of Preadolescent Sexual Abuse?NoADD, OCD, Bipolar, Schizophrenia?YesDepression?Yes TOTAL [id number] Level for Opioid UsehighTobacco Use:Social InfoQuestionAnswer NotesTobacco Control (Standard)Tobacco use:Current smoker? How often do you smoke cigarettes?Every day? How many cigarettes a day do you smoke?5 or less? How soon after you wake up do you smoke your first cigarette?31-60 minutes? Are you interested in quitting?Ready to quitSection Notes: smokes marijuana smokes marijuana smokes marijuana Problems Problem Type SNOMED Code ICD Code Onset Dates Problem Status W/U Status Risk Notes Problem Tobacco user (276097230) Nicotin e dependence, unspecified, uncomplicated (F17.200) ActiveconfirmedProblemMixed bipolar affective disorder, moderate (253818469) Bipolar disorder, current episode mixed, moderate (F31.62)ActiveconfirmedProblem Spina bifida occulta (14333430)Spina bifida occulta (Q76.0)Activeconfirmed ProblemUncomplicated moderate persistent asthma (319343943)Moderate persistent asthma without complication (J45.40)ActiveconfirmedProblemMissed period (85550922)Missed menses (N92.6)ActiveconfirmedProblemMixed incontinence (942771106)Mixed stress and urge urinary incontinence (N39.46)Activeconfirmed ProblemBorderline personality disorder (52921301)Borderline personality disorder in adult (F60.3)ActiveconfirmedProblemHistory of pulmonary embolus (399361828) History of pulmonary embolus (PE) (Z86.711)ActiveconfirmedProblemUrinary incontinence (923266678)Other urinary incontinence (N39.498)Activeconfirmed ProblemAttention deficit hyperactivity disorder (601712941)Attention deficit hyperactivity disorder (ADHD), combined type (F90.2)ActiveconfirmedProblem Cyclical vomiting syndrome (65773435)Cyclic vomiting syndrome (R11.15)Active confirmedProblemCrohn's disease (61484389)Crohn's disease with complication, unspecified gastrointestinal tract location (K50.919)ActiveconfirmedProblem Aortic valve disorder (1119385)Nonrheumatic aortic valve insufficiency (I35.1) ActiveconfirmedProblemAnxiety (46460492)Anxiety (F41.9)InactiveconfirmedProblem Posttraumatic stress disorder (02118598)PTSD (post-traumatic stress disorder) (F43.10)InactiveconfirmedProblemBipolar affective disorder, currently manic, moderate (194411808)Bipolar affective disorder, currently manic, moderate (F31.12)InactiveconfirmedProblemMixed bipolar affective disorder, moderate (950645802)Bipolar mixed affective disorder, moderate (F31.62)Inactiveconfirmed Vital Signs Heart Rate 76 /min 04/28/2025 Rngwlfwvwfs27.2 degrees Jimnjhhkbg73/17/2025Respiratory Rate18 /min04/22/2025 Lpzpvodz49 %04/28/2025lood pressure usnklwocf15 mm Hg04/28/20252972Ziohnm84 in 04/28/2025lood pressure bfynlibg965 mm Hg04/28/20257857Cttefu714.8 lbs106/28/2024MI 28.49 kg/m204/28/2025 Encounters Encounter Location Date Provider Diagnosis [facility] [address] [place] [address] 05/31/2024 Jaime Esthela [facility] [place] [address]/03/2025 [facility] [address] [place] [address]/01/2025[facility] [address] [place] [address]/[facility] [address] [place] [address]/[facility] [address] [place] [address]/[facility] [place] [address] 07/05/2024[facility] [place] [address]/[facility] [address] [place] [address]/[facility] [address] [place] [address]/[facility] [place] [address] [facility] [place] [address]/[facility] [address] [place] [address]/09/[address] [facility] [place] [address]/04/2025[facility] [address] [place] [address]/10/2024[facility] [place] [address]/04/2025[facility] [address] [place] [address]/ Dianajulia LujanBipolar disorder, current episode mixed, moderate F31.62 and Attention deficit hyperactivity disorder (ADHD), combined type F90.2Fmethodist [facility] [address] [place] [address]/Diana LujanPTSD (post-traumatic stress disorder) F43.10 and Bipolar disorder, current episode mixed, moderate F31.62[facility] [address] [place] [address]/Jejessica Resendiz R11.0[facility] Ayunayvo[address] [place] [address]/Patriciojulia Lujan [facility] [place] [address]/ [facility]okiFranc[facility] [place] [address]/02/2025[facility] [place] [address]/03/2025Nicole [facility] [place] [address]/04/2025Nicole [facility] [address] [place] [address]/04/2025Nicole FlemingCrohn's disease with complication, unspecified gastrointestinal tract location K50.919 [facility] [address] [place] [address]/05/[address] [facility] [place] [address] 03/12/2025Nicole [facility] [place] [address]/07/2024Nicole [facility] [place] [address]/08/2024Nicole MissoulaCervical lymphadenopathy R59.0 [facility] [address] [place] [address]/11/2024 [facility] [place] [address] 03/24/2025[address] [facility] [place] [place] [address]/Nicole FlemingGeneralized pain 2[facility] [facility] [place] [address]/Leslie NeubergerBipolar disorder, current episode mixed, moderate F31.62[facility] [facility] [place] [address]/[facility] [place] [address]/03/2025Lese [facility] [place] [address]/10/2024Lese NeubergerBipolar disorder, current episode mixed, moderate F31.[address] [place] [address] [address] [place] [address]/hristy CoxDiana [place] [id number] [facility] HOSPITALDIMIDDLETOWN [place] [address]/Nicole FlemingMissed menses N92.6FGaylord Hospital [address] [place] [address]/Nicole FlemingGeneralized pain [address] [place] [address]/07/2024Jennifer RichardsonNicotine dependence, unspecified, uncomplicated F17.200 ; Nonrheumatic aortic valve insufficiency I35.1 ; History of pulmonary embolus (PE) Z86.711 ; History of Crohn's disease Z87.19 ; Nausea R11.0 ; Abdominal cramping R10.9 ; Blood in stool K92.1 ; Midsternal chest pain R07.89 ; Lower abdominal pain R10.30 ; Moderate persistent asthma without complication J45.40 and Acute cystitis with hematuria N30.01[facility] [address] [address]Jennifer RichardsonNicotine dependence, unspecified, uncomplicated F17.200 ; Nonrheumatic aortic valve insufficiency I35.1 ; Sinus congestion R09.81 ; Skin burn T30.0 and Wheezing R06.2[facility] [address] [address]/03/2025Nicole [facility] wellness visit Z00.00 ; Crohn's disease with complication, unspecified gastrointestinal tract location K50.919 ; Cyclic vomiting syndrome R11.15 ; Borderline personality disorder in adult F60.3 and Respiratory infection J98.8[facility] [address] [address]/09/2024Stephanie [facility] Z09 ; RAGHAVENDRA (acute kidney injury) N17.9 ; Nicotine dependence, unspecified, uncomplicated F17.200 ; Spina bifida occulta Q76.0 ; Mixed stress and urge urinary incontinence N39.46 ; Other urinary incontinence N39.498 and Right sided weakness R53.1[facility] [address] [address]/ Columba FlemingCrohn's disease with complication, unspecified gastrointestinal tract location K50.919 and Generalized lymphadenopathy R59.1[facility] [address] [place] [address]/12/2024[facility] [address] [place] [address]/lexa zzzKevPTSD (post- traumatic stress disorder) F43.10 and Borderline personality disorder in adult F60.3[facility] [address] [place] [address]/12/2024Rossana Hayes Bipolar disorder, current episode mixed, moderate F31.62[facility] E[address]kp[address] [place] [address]/08/2024Rossana HayesBipolar disorder, current episode mixed, moderate F31.62[facility] [address] [place] [address] 09/09/2024Melissa HolladaPTSD (post-traumatic stress disorder) F43.10 and Bipolar mixed affective disorder, moderate F31.62S Phzmeen[address] [place] [address]/01/2025Melissa HolladaBorderline personality disorder in adult F60.3F [address] [place] [address]/06/2024 Loki HolladaBorderline personality disorder in adult F60.3[facility] Eq[address] [place] [address]/11/2024Melissa HolladaBorderline personality disorder in adult F60.3[facility] [address] [facility] [address]/08/2024Melissa HolladaBorderline personality disorder in adult F60.3FRivers[facility] X[address]zdlv[address] [place] [address], [place] [address] 07/10/2024Jasmina SaricCracked tooth K03.81 ; Complete loss of teeth, unspecified cause, class I K08.101 ; Encounter for dental examination and cleaning with abnormal findings Z01.21 and Disturbances in tooth eruption K00.6 [facility] [facility] [place] [address]/5Christy Huber Bipolar mixed affective disorder, moderate F31.62 ; Anxiety F41.9 and PTSD (post-traumatic stress disorder) F43.10S Eqprktp[address] [place] [address]/Leslie NeubergerBipolar mixed affective disorder, moderate F31.62 ; PTSD (post-traumatic stress disorder) F43.10 and Anxiety F41.9[facility] [facility] [place] [address]/4Christy CoxBipolar affective disorder, currently manic, moderate F31.12[facility] [facility] [place] [address]/5Christy CoxBipolar mixed affective disorder, moderate F31.62 and Anxiety F41.9[facility] [place] [address]/Lesjulia LujanPTSD (post-traumatic stress disorder) F43.10 ; Bipolar disorder, current episode mixed, moderate F31.62 and Attention deficit hyperactivity disorder (ADHD), combined type F90.[address] [place], [place] [id number] [facility] [place] [address]/Leslie NeubergerBipolar disorder, current episode mixed, moderate F31.62 and Attention deficit hyperactivity disorder (ADHD), combined type F90.[address] [place], [place] [address]149 [address] [facility] [place] [address]/Leslie NeubergerBipolar disorder, current episode mixed, moderate F31.62 and Attention deficit hyperactivity disorder (ADHD), combined type F90.[address] [place], [place] [address]65 [place] [address]/04/2025Nicole FlemingCrohn's disease with complication, unspecified gastrointestinal tract location K50.919 and Cyclic vomiting syndrome R11.15[facility] [address]wi[address] [place] [address]/04/2025Mary PetersBipolar disorder, current episode mixed, moderate F31.62[facility] [address]ks[address] [place] [address] 04/22/2025Mary PetersBipolar disorder, current episode mixed, moderate F31.62 Assessments Encounter Date Diagnosis (ICD Code) Assessment Notes Treatment Notes Treatment Clinical Notes Section Notes 02/20/2025 Crohn's disease with complication, unspecified gastrointestinal tract location (ICD-10 - K50.919) Maribell was seen yesterday in office to establish care. At this time refills were sent. She staes that [facility] did not refill them correctly and is requesting new prescriptions. She deniesany other complaints or concerns. Advised to follow up as needed.03/14/2025ervical lymphadenopathy (ICD-10 - R59.0)03/24/2025Generalized pain (ICD-10 - R52)04/28/2025Missed menses (ICD-10 - N92.6)Patient complains of missed menstrual cycle this month. States LMP week of March. Urine negative in office. Lab Hcg sent to Jennifer Garciased that the office will call with results.5Bipolar mixed affective disorder, moderate (ICD-10 - F31.62) Recommended treatment for Bipolar disorder includes FDA approved and OFF label medications: second generation antipsychotics and mood stabilizers. Discussed life threatening side effect of Lamotrigine. Pt is to monitor for new skin rashes or sensation of a sunburn or itchiness or redness, mouth sores or sores in mucus membranes, and call provider immediately and or go to ER, and stop the medication. Second generation antipsychotic medications can cause headache, drowsiness, agitation, dizziness, nausea, or extrapyramidal symptoms such as tremors, muscle spasms, slowness of movement or jerkingof muscles. The patient verbalizes understanding with all questions answered thoroughly and is in agreement with treatment plan. Continue current treatment. . Call for problems . GOALS: . Maintain medication regimen _Improve mood stability _Improve anxiety control _Improve social and interpersonal functioning Patient/Guardian will call sooner if symptoms worsen. Patient understands to go to ER if needed if symptoms become severe. Crisis Intervention plan was discussed and agreed upon. Patient/Guardian will call 911 in case of emergency. Emergency contact information was provided to the patient/guardian. follow up 1 month. Pharmacological management: . Alternative medication plans were discussed with the patient/guardian. All relevant side effects and potential adverse effects were discussed with the patient/guardian. Standard cautions and potential benefits were discussed. Patient/Guardian consented to the start/continuation of the treatment. 5Bipolar mixed affective disorder, moderate (ICD-10 - F31.62) Recommended treatment for Bipolar disorder includes FDA approved and OFF label medications: second generation antipsychotics and mood stabilizers. Discussed life threatening side effect of Lamotrigine. Pt is to monitor for new skin rashes or sensation of a sunburn or itchiness or redness, mouth sores or sores in mucus membranes, and call provider immediately and or go to ER, and stop the medication. Second generation antipsychotic medications can cause headache, drowsiness, agitation, dizziness, nausea, or extrapyramidal symptoms such as tremors, muscle spasms, slowness of movement or jerkingof muscles. The patient verbalizes understanding with all questions answered thoroughly and is in agreement with treatment plan. Continue current treatment. Call for problems . GOALS: . Maintain medication regimen _Improve mood stability _Improve anxiety control _Improve social and interpersonal functioning Patient/Guardian will call sooner if symptoms worsen. Patient understands to go to ER if needed if symptoms become severe. Crisis Intervention plan was discussed and agreed upon. Patient/Guardian will call 911 in case of emergency. Emergency contact information was provided to the patient/guardian. follow up 1 month. Pharmacological management: . Alternative medication plans were discussed with the patient/guardian. All relevant side effects and potential adverse effects were discussed with the patient/guardian. Standard cautions and potential benefits were discussed. Patient/Guardian consented to the start/continuation of the treatment. 06/07/2024ipolar affective disorder, currently manic, moderate (ICD-10 - F31.12) Recommended treatment for Bipolar disorder includes FDA approved and OFF label medications: second generation antipsychotics and mood stabilizers. Discussed life threatening side effect of Lamotrigine. Pt is to monitor for new skin rashes or sensation of a sunburn or itchiness or redness, mouth sores or sores in mucus membranes, and call provider immediately and or go to ER, and stop the medication. Second generation antipsychotic medications can cause headache, drowsiness, agitation, dizziness, nausea, or extrapyramidal symptoms such as tremors, muscle spasms, slowness of movement or jerkingof muscles The patient verbalizes understanding with all questions answered thoroughly and is in agreement with treatment plan. Continue current treatment. . Call for problems . GOALS: . Maintain medication regimen _Improve mood stability _Improve anxiety control _Improve social and interpersonal functioning Patient/Guardian will call sooner if symptoms worsen. Patient understands to go to ER if needed if symptoms become severe. Crisis Intervention plan was discussed and agreed upon. Patient/Guardian will call 911 in case of emergency. Emergency contact information was provided to the patient/guardian. follow up 1 month. Pharmacological management: . Alternative medication plans were discussed with the patient/guardian. All relevant side effects and potential adverse effects were discussed with the patient/guardian. Standard cautions and potential benefits were discussed. Patient/Guardian consented to the start/continuation of the treatment. Pt was given her Abilify Maintena injection from clinic sample stock in her LT glute. Refills sent to [facility]. Pt tolerated well. Lot # [id number]. EXP: 09/2026. Given by: Libia Calderon CMA.03/24/2025Generalized pain (ICD-10 - R52) Complains of generalized aches and pains. States she feels like since she stopped smoking marijuanaher pain has worsened. She states that she tried to call pain management to get an appointment but they are requesting a referral. She is currently taking Gabapentin, Tizanidine, and Lidocaine patches with minimal relief. A prescription for refill on Lidocaine patches is sent along with a referral to pain management.02/19/2025nnual wellness visit (ICD-10 - Z00.00)10/31/2024ipolar disorder, current episode mixed, moderate (ICD-10 - F31.62) Patient will continue current treatment plan. Patient verbally acknowledges understanding instructions including medication education and has no further questions comments or concerns at this time. . Follow in 3 Months . Recommended treatment for Bipolar disorder includes FDA approved and OFF label medications: second generation antipsychotics and mood stabilizers. Second generation antipsychotic medications can cause headache, drowsiness, agitation, dizziness, nausea, or extrapyramidal symptoms such as tremors, muscle spasms, slowness of movement or jerking of muscles. Hydroxyzine: Made aware that the med will cause sedation, dry mouth, and urinary retention. Do not take before driving a car until you know how the med will affect you. Do not take the medication if . Do not take with other [employer] depressants. Call 911 for difficulty breathing. Prazosin- Encouraged to call office or report to the if the patient experiences dizziness or lightheadedness . Stable . The patient verbalizes understanding with all questions answered thoroughly and is in agreement with treatment plan. . Continue current treatment. Call for problems . GOALS: . Maintain medication regimen . _Improve mood stability . _Improve anxiety control . _Improve social and interpersonal functioning . Patient/Guardian will call sooner if symptoms worsen. Patient understands to go to ER if needed if symptoms become severe. . Crisis Intervention plan was discussed and agreed upon. Patient/Guardian will call 911 in case of emergency. Emergency contact information was provided to the patient/guardian. . Pharmacological management: . Alternative medication plans were discussed with the patient/guardian. All relevant side effects and potential adverse effects were discussed with the patient/guardian. Standard cautions and potential benefits were discussed. Patient/Guardian consented to the start/continuation of the treatment. 09/20/2024PTSD (post-traumatic stress disorder) (ICD-10 - F43.10)02/20/2025 Bipolar disorder, current episode mixed, moderate (ICD-10 - F31.62) Pt was given a sample of Abilify Maintena 400mg injection Given in Left Glute Pt tolerated well LOT [id number] EXP FEB 2027 Soo A 10/15/2024orderline personality disorder in adult (ICD-10 - F60.3)02/20/2025 Crohn's disease with complication, unspecified gastrointestinal tract location (ICD-10 - K50.919)02/19/2025rohn's disease with complication, unspecified gastrointestinal tract location (ICD-10 - K50.919) Patient states history of Chron's. She has not seen a GI doctor in a few years and is requesting a new one. She is taking Bentyl, Phenergan, and Zofran with some relief of symptoms. She is frustratedbecause she has been seen in the ER multiple times for what she believes is flare ups but she is told she has cyclic vomiting. She states she is currently not in a flare. A referral to GI will be placed and refills for her medications. - Referral to Gastroenterology 09/09/2024PTSD (post-traumatic stress disorder) (ICD-10 - F43.10)07/02/2024 Anxiety (ICD-10 - F41.9)09/09/2024ipolar mixed affective disorder, moderate (ICD-10 - F31.62) Patient will continue current treatment plan. Patient verbally acknowledges understanding instructions including medication education and has no further questions comments or concerns at this time. . Follow in 3 weeks . Recommended treatment for Bipolar disorder includes FDA approved and OFF label medications: second generation antipsychotics and mood stabilizers. Second generation antipsychotic medications can cause headache, drowsiness, agitation, dizziness, nausea, or extrapyramidal symptoms such as tremors, muscle spasms, slowness of movement or jerking of muscles. . Stable . The patient verbalizes understanding with all questions answered thoroughly and is in agreement with treatment plan. . Continue current treatment. Call for problems . GOALS: . Maintain medication regimen . _Improve mood stability . _Improve anxiety control . _Improve social and interpersonal functioning . Patient/Guardian will call sooner if symptoms worsen. Patient understands to go to ER if needed if symptoms become severe. . Crisis Intervention plan was discussed and agreed upon. Patient/Guardian will call 911 in case of emergency. Emergency contact information was provided to the patient/guardian. . Pharmacological management: . Alternative medication plans were discussed with the patient/guardian. All relevant side effects and potential adverse effects were discussed with the patient/guardian. Standard cautions and potential benefits were discussed. Patient/Guardian consented to the start/continuation of the treatment. 5Bipolar disorder, current episode mixed, moderate (ICD-10 - F31.62) Patient will continue current treatment plan. Patient verbally acknowledges understanding instructions including medication education and has no further questions comments or concerns at this time. . Follow in 1 Month . Recommended treatment for Bipolar disorder includes FDA approved and OFF label medications: second generation antipsychotics and mood stabilizers. Second generation antipsychotic medications can cause headache, drowsiness, agitation, dizziness, nausea, or extrapyramidal symptoms such as tremors, muscle spasms, slowness of movement or jerking of muscles. . Stable . The patient verbalizes understanding with all questions answered thoroughly and is in agreement with treatment plan. . Continue current treatment. Call for problems . GOALS: . Maintain medication regimen . _Improve mood stability . _Improve anxiety control . _Improve social and interpersonal functioning . Patient/Guardian will call sooner if symptoms worsen. Patient understands to go to ER if needed if symptoms become severe. . Crisis Intervention plan was discussed and agreed upon. Patient/Guardian will call 911 in case of emergency. Emergency contact information was provided to the patient/guardian. . Pharmacological management: . Alternative medication plans were discussed with the patient/guardian. All relevant side effects and potential adverse effects were discussed with the patient/guardian. Standard cautions and potential benefits were discussed. Patient/Guardian consented to the start/continuation of the treatment. 10/01/2024PTSD (post-traumatic stress disorder) (ICD-10 - F43.10) Patient will continue current treatment plan. Patient verbally acknowledges understanding instructions including medication education and has no further questions comments or concerns at this time. . Follow in 1 Month . Recommended treatment for Bipolar disorder includes FDA approved and OFF label medications: second generation antipsychotics and mood stabilizers. Second generation antipsychotic medications can cause headache, drowsiness, agitation, dizziness, nausea, or extrapyramidal symptoms such as tremors, muscle spasms, slowness of movement or jerking of muscles. . Stable . The patient verbalizes understanding with all questions answered thoroughly and is in agreement with treatment plan. . Continue current treatment. Call for problems . GOALS: . Maintain medication regimen . _Improve mood stability . _Improve anxiety control . _Improve social and interpersonal functioning . Patient/Guardian will call sooner if symptoms worsen. Patient understands to go to ER if needed if symptoms become severe. . Crisis Intervention plan was discussed and agreed upon. Patient/Guardian will call 911 in case of emergency. Emergency contact information was provided to the patient/guardian. . Pharmacological management: . Alternative medication plans were discussed with the patient/guardian. All relevant side effects and potential adverse effects were discussed with the patient/guardian. Standard cautions and potential benefits were discussed. Patient/Guardian consented to the start/continuation of the treatment. 5Cracked tooth (ICD-10 - K03.81)05/16/2025ipolar disorder, current episode mixed, moderate (ICD-10 - F31.62)5Anxiety (ICD-10 - F41.9) Recommended treatment is: _ FDA approved medication for this age group include Selective Serotonin Reuptake Inhibitors (SSRI) and Selective Norepinephrine Reuptake Inhibitors (SNRI). . Selective serotonin reuptake inhibitors can cause nausea, headache, upset stomach, diarrhea, constipation, anxiety, irritability, and sexual dysfunction. . Please monitor for worsening of symptoms, especially suicidal ideations or morbid thoughts, and call office and or go to the emergency department immediately. Pt does not endorse exhibiting symptoms aligning with david. . The patient verbalizes understanding with all questions answered thoroughly and is in agreement with treatment plan. . Continue current treatment plan with fluoxetine. Patient/Guardian will call sooner if symptoms worsen. Patient understands to go to ER if needed if symptoms become severe. Crisis Intervention plan was discussed and agreed upon. Patient/Guardian will call 911 in case of emergency. Emergency contact information was provided to the patient/guardian. 5Bipolar disorder, current episode mixed, moderate (ICD-10 - F31.62) 5Bipolar disorder, current episode mixed, moderate (ICD-10 - F31.62) 03/11/2025rohn's disease with complication, unspecified gastrointestinal tract location (ICD-10 - K50.919)Patient admits to going to the ER multiple times in the last few weeks for colitis flare ups. She states she has been continuously told she has cyclic vomiting from smoking marijuana. A referral for GI was placed last visit but she states they referred her to Sharon who also told her she has cyclic vomiting. She states that she does not believe this is the case and is requesting a new referral.03/11/2025Generalized lymphadenopathy (ICD-10 - R59.1)Patient has been seen in the ER multiple times, lastly on 03/04 at an [facility], for swollenlymph nodes on her neck with difficulty swallowing. She states that she had a CT of her neck in 2023 and was told she has multiple swollen lymph nodes throughout her neck and chest. A CT scan on 03/04shows right cervical lymph node swelling. She believes that she has HIV or lymphoma and is requesting testing. Labs will be ordered and a referral to ENT will be placed. I discussed with her that these may be reactive from a latent virus.02/20/2025yclic vomiting syndrome (ICD-10 - R11.15)06/13/2024Nicotine dependence, unspecified, uncomplicated (ICD-10 - F17.200)Quitting Tobacco: Care Instructions material was mqzgioiog16/02/2025Nonrheumatic aortic valve insufficiency (ICD-10 - I35.1)Needs to see Cardiology for follow up as she has not seen for some time and does not want to go to [place] if she can be seen locally.07/02/2024Nicotine dependence, unspecified, uncomplicated (ICD-10 - F17.200)Quitting Tobacco: Care Instructions material was iauliysti14/21/2025 Nonrheumatic aortic valve insufficiency (ICD-10 - I35.1)Does have an appt with Cardiology for September but on a waiting list.09/10/2024orderline personality disorder in adult (ICD-10 - F60.3)09/13/2024KI (acute kidney injury) (ICD-10 - N17.9)Patient labs are improved from admission. Pt asked for other pain medications instead of oxycodone since it makes her just want to sleep. I recommended patient to take Tylenol or acetaminophen only.09/13/2024Hospital discharge follow-up (ICD-10 - Z09)Contacted [facility] [place] because of how upset patient is due to not having HH and PT orders at discharge. They got back to us and informed us that patient left AMA and that is why she did not get HH or PT set u p for her. They were in the process of trying to find her a skilled facility because she was askingfor that and she left. Since she left she did not get anymore case management assistance.10/16/2024ipolar disorder, current episode mixed, moderate (ICD-10 - F31.62) Pt brought in her own Abilify Maintena 400mg injection given in Right Glute Pt tolerated well LOT [id number] LOT JAN 2027 Soo RMA . provider present for direct supervision 11/12/2024orderline personality disorder in adult (ICD-10 - F60.3)11/12/2024 Bipolar disorder, current episode mixed, moderate (ICD-10 - F31.62)12/17/2024 Borderline personality disorder in adult (ICD-10 - F60.3)12/31/2024ipolar disorder, current episode mixed, moderate (ICD-10 - F31.62)01/01/2025PTSD (post- traumatic stress disorder) (ICD-10 - F43.10)01/23/2025Nausea (ICD-10 - R11.0) 01/27/2025ipolar disorder, current episode mixed, moderate (ICD-10 - F31.62) Pt brought in her own Abilify Maintena 400mg injection Given in Right Glute Pt tolerated well LOT [id number] EXP APR 2027 LMony Villa RMA Patient will continue current treatment plan. Patient verbally acknowledges understanding instructions including medication education and has no further questions comments or concerns at this time. . Follow in 3 Months . Recommended treatment for Bipolar disorder includes FDA approved and OFF label medications: second generation antipsychotics and mood stabilizers. Second generation antipsychotic medications can cause headache, drowsiness, agitation, dizziness, nausea, or extrapyramidal symptoms such as tremors, muscle spasms, slowness of movement or jerking of muscles. . Stable . The patient verbalizes understanding with all questions answered thoroughly and is in agreement with treatment plan. . Continue current treatment. Call for problems . GOALS: . Maintain medication regimen . _Improve mood stability . _Improve anxiety control . _Improve social and interpersonal functioning . Patient/Guardian will call sooner if symptoms worsen. Patient understands to go to ER if needed if symptoms become severe. . Crisis Intervention plan was discussed and agreed upon. Patient/Guardian will call 911 in case of emergency. Emergency contact information was provided to the patient/guardian. . Pharmacological management: . Alternative medication plans were discussed with the patient/guardian. All relevant side effects and potential adverse effects were discussed with the patient/guardian. Standard cautions and potential benefits were discussed. Patient/Guardian consented to the start/continuation of the treatment. 01/27/2025ttention deficit hyperactivity disorder (ADHD), combined type (ICD-10 - F90.2)12/31/2024ttention deficit hyperactivity disorder (ADHD), combined type (ICD-10 - F90.2)01/01/2025ipolar disorder, current episode mixed, moderate (ICD-10 - F31.62)09/13/2024Nicotine dependence, unspecified, uncomplicated (ICD-10 - F17.200)07/02/2024Sinus congestion (ICD-10 - R09.81)Requests medication for her sinus congestion. Ed on use of meds and possible s/e. 06/13/2024History of pulmonary embolus (PE) (ICD-10 - Z86.711)Does have positive recent hx PE and having resp complaints and chest pain at times. Will get CT andlabs, pt should go to ER immed if any worsening of s/s.08/07/2024PTSD (post- traumatic stress disorder) (ICD-10 - F43.10)Increase prazosin dose to 4mg at bedtime and add1mg dose in am for PTSD symptoms.07/10/2024omplete loss of teeth, unspecified cause, class I (ICD-10 - K08.101)10/01/2024ttention deficit hyperactivity disorder (ADHD), combined type (ICD-10 - F90.2) Informed consent obtained: YES, we discussed the diagnosis/diagnoses, the treatment options, treatment(s) recommendations vs. no treatment. We discussed risks and benefits of treatment options, treatment recommendations vs. no treatment. Currently at low risk for self harm. Denies ongoing feelings of hopelessness. Denies ongoing suicidal ideation, intent or plan in session. Pharmacological management: Alternative medication plans were discussed with the patient and or guardian. All relevant and serious adverse effects were discussed. Standard precautions and potential benefits were discussed. Patient/Guardian consented to begin medication/ continue treatment plan. questions answered satisfactorily, agreeable to treatment plan Cont current treatment Tolerating meds well, compliant Call for problems Follow up 1 months Patient/Guardian will call sooner if symptoms worsen. Patient understands to go to the ER if neededif symptoms become severe. Crisis intervention plan was discussed and agreed upon. Patient/Guardian will call 911 in case of emergency. Emergency contact information was provided to the patient/guardian. 09/09/2024PTSD (post-traumatic stress disorder) (ICD-10 - F43.10) Informed consent obtained: YES, we discussed the diagnosis/diagnoses, the treatment options, treatment(s) recommendations vs. no treatment. We discussed risks and benefits of treatment options, treatment recommendations vs. no treatment. Prazosin- Encouraged to call office or report to the if the patient experiences dizziness or lightheadedness Currently at low risk for self harm. Denies ongoing feelings of hopelessness. Denies ongoing suicidal ideation, intent or plan in session. Pharmacological management: Alternative medication plans were discussed with the patient and or guardian. All relevant and serious adverse effects were discussed. Standard precautions and potential benefits were discussed. Patient/Guardian consented to begin medication/ continue treatment plan. questions answered satisfactorily, agreeable to treatment plan Cont current treatment Tolerating meds well, compliant Call for problems Follow up 3 weeks Patient/Guardian will call sooner if symptoms worsen. Patient understands to go to the ER if neededif symptoms become severe. Crisis intervention plan was discussed and agreed upon. Patient/Guardian will call 911 in case of emergency. Emergency contact information was provided to the patient/guardian. 5Bipolar mixed affective disorder, moderate (ICD-10 - F31.62)09/20/2024 Borderline personality disorder in adult (ICD-10 - F60.3)5Attention deficit hyperactivity disorder (ADHD), combined type (ICD-10 - F90.2)02/19/2025 Cyclic vomiting syndrome (ICD-10 - R11.15)02/19/2025orderline personality disorder in adult (ICD-10 - F60.3)09/09/2024nxiety (ICD-10 - F41.9)Hydroxyzine: Made aware that the med will cause sedation, dry mouth, and urinary retention. Do not take before driving a car until you know how the med will affect you. Do not take the medication if . Do not take with other [employer] depressants. Call 911 for difficulty breathing.07/10/2024Encounter for dental examination and cleaning with abnormal findings (ICD-10 - Z01.21)06/13/2024History of Crohn's disease (ICD-10 - Z87.19)Needs to see GI for her Crohns mgmt. Referral placed along with CT ordered of abdomen bc of complaints.07/02/2024Skin burn (ICD-10 - T30.0)Can use the mupirocin ointment to site prn.09/13/2024Spina bifida occulta (ICD-10 - Q76.0)Pt did experience weakness prior to admission but weakness has increased in severity per patient and only mild improvement since she left AMA 09/13/2024Mixed stress and urge urinary incontinence (ICD-10 - N39.46)Will order supplies for patient for incontinence /21/2025Wheezing (ICD-10 - R06.2)Started on taper of prednisone bc pt still having wheezing, resp complaints. Avoid NSAIDs like ibuprofen and naproxen while taking. Prednisone can increase blood glucose, diabetics will be advised tomonitor closely. Take in AM with food.06/13/2024Nausea (ICD-10 - R11.0)Pt will be prescribed Zofran (Ondansetron) Hcl 4mg and educated on taking medication and s/e, can cause constipation. Avoid triggering foods, moderate fluid intake of cold liquids. Recommended to call if symptoms persist or worsen.07/10/2024Disturbances in tooth eruption (ICD-10 - K00.6)02/19/2025Respiratory infection (ICD-10 - J98.8) Patient complains of respiratory symptoms for 1 week. She complains of a dry cough, wheezing, nasalcongestion, rhinorrhea, and generalized fatigue. She states her daughter came home from school sickand this is where she believes she got it from. She has a history of asthma but has not had her inhaler to use. Expiratory wheezing noted on exam. Educated on increasing fluid and rest, rotating tylenol/motrin as needed for fever, and using albuterol inhaler for any shortness of breath, cough, and wheezing. Advised to folllow up in office should symptoms not resolve. - Azithromycin x 5 days - Medrol dose-rosa - Albuterol PRN 09/13/2024Other urinary incontinence (ICD-10 - N39.498)06/13/2024bdominal cramping (ICD-10 - R10.9)Pt has complaints of abdominal pain/ cramping. Pt will have CT and labs. Pt also will start Bentyl for cramping and educated on use of medication. Pt recommended to seek emergency treatment if abd pain becomes worse, intractable n/v/d and/or signs of dehydration. Pt VU.5Blood in stool (ICD-10 - K92.1)09/13/2024Right sided weakness (ICD-10 - R53.1)06/13/2024 Midsternal chest pain (ICD-10 - R07.89)06/13/2024Lower abdominal pain (ICD-10 - R10.30)06/13/2024Moderate persistent asthma without complication (ICD-10 - J45.40)Uncontrolled at this time. Will start patient on synbicort daily, discussed risks and side effects of medication. OK to use albuterol PRN for SOB, goal to use less frequently. Follow up if symptoms do not appreciably improve with therapy. Patient verbalized understanding, in agreement with plan. 5Acute cystitis with hematuria (ICD-10 - N30.01)U/A consistent for UTI, will send for culture. Start antibiotic, pt advised to take as prescribed and until gone. Potential side effects of abx discussed including upset stomach, diarrhea, if symptoms occur, please notify office. Good malcolm-hygiene is discussed. Always wipe front to back, void afterintercourse, avoid rectal to vaginal intercourse as this can transfer bacteria, void after intercourse. Increase oral fluids to flush system. Cranberry juice and orange juice are more acidic and goodfor the urinary tract. Avoid irritants such as alcohol, caffeine. If you develop fever, chills, blood in urine, back pain, go to the ER/urgent care.06/13/2024OtherBody Mass Index: Care Instructions material was published 07/02/2024OtherBody Mass Index: Care Instructions material was published 08/07/2024OtherPatient's medication was brought in from pharmacy. Abilify Maintena 400mg given IM to right gluteal. Pt. tolerated well. LOT# [id number], EXP. 01/2027. Given by Erick Mcgarry LPN.09/13/2024OtherBody Mass Index: Care Instructions material was published, Body Mass Index: Care Instructions material was [id number]/20/2024Other Pt brought in her own Abilify Maintena 400mg injection Given in Left Glute Pt tolerated well LOT [id number] EXP JAN 2027 11/12/2024Other Pt brought in own medication, tolerated injection well Abilify 400mg Lot [id number] Exp 01/2027 Rte Left Glute Masha Maikol- RMA 02/19/2025OtherBody Mass Index: Care Instructions material was printed, Quitting Tobacco: Care Instructions material was [id number]/20/2025OtherBody Mass Index: Care Instructions material was printed, Quitting Tobacco: Care Instructions material was qheeqof3503/11/2025OtherBody Mass Index: Care Instructions material was printed, Marijuana Use: Care Instructions material was [id number]/18/2025 OtherAbilify Maintena 40 0 mg Lot [id number] Exp 06/2027 injected in left hip - sls 03/24/2025OtherBody Mass Index: Care Instructions material was printed, Quitting Tobacco: Care Instructions material was printed, Marijuana Use: Care Instructions material was [id number]/22/2025Other Abilify Maintena ER 400mg prefilled dual chamber syringe injection given in Right Buttocks GTIN - [id number] - [id number] Lot # - [id number] CONNIE Nieves/STACY ObandoHNDimas 04/28/2025OtherBody Mass Index: Care Instructions material was published, Body Mass Index: Care Instructions material was printed Plan Of Treatment Pending Test Test Name Order Date urine 04/28/2025 CT SOFT TISSUE NECK W/ CONTRAST* 025 B hCG Qual 04/28/2025 CMP 02/19/2025 Lipid Panel 02/19/2025 Insurance Providers Payer Name Payer Address Payer Phone Subscriber Number Group Number Insured Name Patient Relationship to Insured Coverage Start Date Coverage End Date [place] [employer] [address] [place] [phone] [id number] KELLY TINOCO Self - patient is the insured [facility] [address] [place] [id number] Adin TINOCO - patient is the [id number] 2022H [place] MedicaidPO [address] [place] [id number], KELSEYSelf - patient is the [id number] 2022 [facility] [address] [place] [id number], KELSEYSelf - patient is the vooclgb95/01/20[facility] [address]PO [address] [address] [place] [address] [phone], KELSEYSelf - patient is the [id number] 2022 [employer] [facility] [place] [phone] [id number] TINOCO - patient is the [id number] 2022 Medical (General) History Medical History History ICD Code Crohn's Disease Spina Bifida-closedBipolar DisorderLumbar RadiculopathyPE 11/02ScoliosisTobacco Use 20 Pack YearsAsthma Mod PersistentAortic Valve Insufficiency Mod-Severe Surgical History Surgery Date(Month/Year) and 2 Hemorrhages 11/2019 colonoscopy 07/2024 biopsy of lymph nodes Hospitalization History Reason Date(Month/Year) Stroke like symptoms - kidney injury- PE 08/2024 PE 10/2023 nausea/vomiting 02/2025 nausea/vomiting 01/2025 nausea/vomiting 01/2025 uncontrolled vomiting 01/2025
[2025-05-27 07:14] LABS: Basophils Abs Manual 0.00 10^3/uL (0.00-0.10); Basophils Percent Manual 0.0 % (0.2-2.0); Eosinophils Absolute Manual 0.03 10^3/uL (0.00-0.70); Eosinophils Percent Manual 1.0 % (0.9-7.0); Lymphocytes Absolute Manual 0.60 10^3/uL (1.20-3.80); Lymphocytes Percent Manual 16.0 % (20.5-60.0); Monocytes Absolute Manual 0.26 10^3/uL (0.30-0.80); Monocytes Percent Manual 7.0 % (1.7-12.0); Segmented Neut Absolute Manual 2.88 10^3/uL (1.4-6.5); Segmented Neutrophils % Manual 76.0 (43.0-75.0)
[2025-05-27 07:18] LABS: Lactate/Lactic Acid 2.6 mmol/L (0.4-2.0)
[2025-05-27] MEDS: 0.9 % SODIUM CHLORIDE 1,000 ML 1000 ML IV (07:34)
[2025-05-27] MEDS: FAMOTIDINE/PF 20 MG/2 ML VIAL IV (07:35)
[2025-05-27] MEDS: PROCHLORPERAZINE 10 MG/2 ML VIAL IV (07:35)
--- NOTE | 2025-05-27 08:44 | PC.NURSE ---
Patient received 1000 mL normal saline that was initiated by EMS.
== END 2025-05-27 08:47 | disposition home or self-care (01) ==
PROVIDERS: Emergency Medicine; Emergency Provider Internal Medicine
DX: U07.1 COVID-19 (principal); K52.9 Noninfective gastroenteritis and colitis, unspecified; N17.9 Acute kidney failure, unspecified; R11.15 Cyclical vomiting syndrome unrelated to migraine; Z53.29 Procedure and treatment not carried out because of patient's decision for other reasons
CPT/HCPCS: 36415; 80053; 81001; 83605; 84703; 85007; 85027; 87086; 87088; 87186; 87804; 87811; 96361; 96374; 96375; 99283; 99284; J0780; J2405; J3490

== ENCOUNTER 2025-05-27 13:52 | Emergency (ER) | payer OTHER, SELFPAY ==
[2025-05-27 13:55] VITALS: BP 114/88; PULSE 87; TEMP 37.3; O2SAT 99
--- NOTE | 2025-05-27 13:57 | ED.GENADUL1 ---
HPI HPI - General Adult General Chief complaint: Nausea/Vomiting/Diarrhea Stated complaint: BLOOD IN URINE Time Seen by Provider: 05/27/25 13:53 History of Present Illness HPI narrative: The patient was just evaluated in our hospital almost a few hours ago when she was diagnosed with COVID-19, she also was found to have acute kidney injury and there was no urine infection she did had some nitrite in the urine but no white blood cells that is significant for UTI, she was discharged home after she doordashed her food to the bedside and started eating it , and then requested just to leave Is coming to the ER right now because she started throwing up according to what she said to the EMS and she also told them that she left AMA from here although she did get discharged not leaving AMA The patient did had acute kidney injury and at that time the plan was to repeat the blood before she goes home but she was tolerating p.o. intake and the plan just to continue with the primary care The patient right now when I presented to the bedside she is talking about urine infection and having blood in her urine and she is not getting any better, she is not actively in any distress but she seems to be upset , I tried to clarify why she is upset she said that nobody told her that she have urine infection and I did explain to her that she did not have a urine infection Her presentation was solely due to COVID-19. When she presented to us initially she did not have any flank pain her concern with nausea vomiting and generalized body ache which right now she mentioned flank pain and I did explain to her that we will get a CAT scan and a blood workup to make sure that she does not have any kidney stone When explained to her what going on she said that she just want to leave, and then she said nobody trying to help her when I explained to her that we are here to help her but she just called her relative on the phone and told him to come and take her to another hospital, The patient right now is stable as per the EMS report and she would just be discharged as she just want to leave No examination at the moment for the patient as she is just angry and just want to leave Patient was evaluated this morning she did not have any symptoms other than generalized body ache chills nausea vomiting and diarrhea Related Data Home Medications ?Medication ?Instructions ?Recorded ?Confirmed gabapentin 400 mg tablet 400 mg PO BID 05/27/25 05/27/25 metoclopramide HCl 10 mg tablet 10 mg PO BID 05/27/25 05/27/25 (Reglan) ondansetron HCl 4 mg tablet 4 mg PO Q8H 05/27/25 05/27/25 tizanidine 4 mg capsule (Zanaflex) 4 mg PO BID PRN muscle spasticity 05/27/25 05/27/25 Previous Rx's ?Medication ?Instructions ?Recorded promethazine 25 mg rectal 25 mg WV BID PRN nausea and 05/27/25 suppository vomiting #12 ea promethazine 25 mg tablet 25 mg PO TID PRN nausea and 05/27/25 vomiting #20 tabs Allergies Allergy/AdvReac Type Severity Reaction Status Date / Time latex Allergy Severe Hives Verified 05/27/25 13:55 aspirin Allergy Intermediate Vomiting Verified 05/27/25 13:55 lamotrigine (From Lamictal) AdvReac Intermediate Rash Verified 05/27/25 13:55 [facility] Medical History (Updated 05/27/25 @ 14:01 by Catrina Wang MD) Pain management ?R52 - Pain, unspecified (ICD-10) delivery delivered ?O82 - Encounter for delivery without indication (ICD-10) Nonrheumatic aortic (valve) stenosis ?I35.0 - Nonrheumatic aortic (valve) stenosis (ICD-10) Cyclic vomiting syndrome ?R11.15 - Cyclical vomiting syndrome unrelated to migraine (ICD-10) Pulmonary embolism ?I26.99 - Other pulmonary embolism without acute cor pulmonale (ICD-10) Acute Crohn's disease ?K50.90 - Crohn's disease, unspecified, without complications (ICD-10) TIA (transient ischemic attack) ?G45.9 - Transient cerebral ischemic attack, unspecified (ICD-10) Social History Little interest or pleasure in doing things: not at all Feeling down, depressed, or hopeless: not at all Exam Constitutional Vital Signs, click to edit/add: Last Vital Signs Temp 99.2 F 05/27/25 13:55 Pulse 87 05/27/25 13:55 Resp 18 05/27/25 13:55 BP 114/88 05/27/25 13:55 Pulse Ox 99 05/27/25 13:55 Course Vital Signs Vital signs: Vital Signs Temperature 99.2 F 05/27/25 13:55 Pulse Rate 87 05/27/25 13:55 Respiratory Rate 18 05/27/25 13:55 Blood Pressure 114/88 05/27/25 13:55 Pulse Oximetry 99 05/27/25 13:55 Temperature 99.2 F 05/27/25 13:55 Pulse Rate 87 05/27/25 13:55 Respiratory Rate 18 05/27/25 13:55 Blood Pressure 114/88 05/27/25 13:55 Pulse Oximetry 99 05/27/25 13:55 Discharge Plan Discharge Stand Alone Forms: Portal Instructions Chief Complaint: Nausea/Vomiting/Diarrhea Clinical Impression: Left against medical advice, COVID-19 Patient Disposition: Left Against Medical Advice Time of Disposition Decision: 14:01 Condition: Good Prescriptions / Home Meds: No Action gabapentin 400 mg tablet 400 mg PO BID tizanidine [Zanaflex] 4 mg capsule 4 mg PO BID PRN (Reason: muscle spasticity) ondansetron HCl 4 mg tablet 4 mg PO Q8H metoclopramide HCl [Reglan] 10 mg tablet 10 mg PO BID promethazine 25 mg tablet 25 mg PO TID PRN (Reason: nausea and vomiting) Qty: 20 0RF promethazine 25 mg suppository 25 mg W[place] BID PRN (Reason: nausea and vomiting) Qty: 12 0RF Rx Instructions: please use if not tolerating PO Print Language: Swedish Instructions: Against Medical Advice (ED) Referrals: Physician,Non-Staff, MD [Primary Care Provider] - 1 week Discharge Date/Time: 05/27/25 14:02
== END 2025-05-27 14:02 | disposition left against medical advice (07) ==
PROVIDERS: Emergency Provider Emergency Medicine
DX: U07.1 COVID-19 (principal); Z53.29 Procedure and treatment not carried out because of patient's decision for other reasons
CPT/HCPCS: 99283